=== PATIENT | male | born 1965 | race Two or more races ===

== ENCOUNTER 2023-02-10 21:41 | Inpatient (IN) | payer OTHER ==
[2023-02-10] MEDS ORDERED: morphine SULFATE 4 MG/ML VIAL ONE (22:33)
[2023-02-10] MEDS ORDERED: ONDANSETRON 4 MG/2 ML VIAL IVPUSH ONE (22:39)
[2023-02-10] MEDS ORDERED: ONDANSETRON 4 MG/2 ML VIAL ONE (22:39)
[2023-02-10] MEDS ORDERED: morphine CARPU-JECT 4 MG/1 ML DISP.SYRIN IVPUSH ONE (22:46)
[2023-02-10 22:55] LABS: BASO % 0.3 % (0-2.0); EOS % 0.1 % (0-4.5); HEMATOCRIT 51.7 % (35.4-49); HEMOGLOBIN 17.3 GM/dL (11.7-16.9); LYMPH % 7.5 % (8-40); MCH 25.9 pg (25.7-33.7); MCHC 33.5 g/dl (32.0-35.9); MEAN CELL VOLUME 77.3 fl (80-96); MEAN PLT VOLUME 8.6 fl (7.5-11.1); MONO % 2.8 % (3.8-10.2); NEUT % 89.3 % (42.8-82.8); PLATELET COUNT 303 10^3/uL (134-434); RBC 6.69 M/mm3 (4.00-5.60)
[2023-02-10 23:02] LABS: INR 1.11 (0.83-1.09); PROTHROMBIN TIME (PATIENT) 12.9 SEC (9.7-13.0)
[2023-02-10 23:04] LABS: ACTIVATED PTT 34.5 SECONDS (25.2-36.5)
[2023-02-10] MEDS ORDERED: LACTATED RINGERS SOLUTION 1000 ML INFUS.BAG IV ONE (23:05)
[2023-02-10 23:20] LABS: POTASSIUM 4.4 mmol/L (3.5-5.1)
[2023-02-10 23:23] LABS: ALBUMIN 4.3 g/dl (3.4-5.0); CALCIUM 10.2 mg/dL (8.5-10.1)
[2023-02-10 23:26] LABS: CREATININE 2.2 mg/dL (0.55-1.3)
[2023-02-10 23:27] LABS: BILIRUBIN,TOTAL 0.6 mg/dL (0.2-1)
[2023-02-11] MEDS ORDERED: morphine CARPU-JECT 4 MG/1 ML DISP.SYRIN IVPUSH ONE (00:33)
[2023-02-11 00:34] LABS: PH,URINE 6.5 (5.0-8.0); URINE APPEARANCE CLEAR; URINE BILIRUBIN NEGATIVE (NEGATIVE); URINE COLOR YELLOW; URINE GLUCOSE (UA) NEGATIVE (NEGATIVE); URINE KETONE 1+ (NEGATIVE); URINE LEUK ESTERASE NEGATIVE (NEGATIVE); URINE NITRITE NEGATIVE (NEGATIVE); URINE PROTEIN TRACE (NEGATIVE); URINE UROBILINOGEN 0.2 mg/dL (0.2-1.0)
[2023-02-11] MEDS ORDERED: morphine SULFATE 4 MG/ML VIAL ONE (00:38)
[2023-02-11] MEDS ORDERED: CEFTRIAXONE 1 GM in DEXTROSE 5%-WATER - 100 ML IVPB ONE (01:45)
[2023-02-11] MEDS ORDERED: CEFTRIAXONE 1 GM/50 ML BAG ONE (01:51)
[2023-02-11] MEDS ORDERED: TRIMETHOBENZAMIDE HCL 200MG/2ML INJ IM PRN ×2 (03:06→13:17)
[2023-02-11] MEDS ORDERED: SODIUM CHLORIDE 0.45% 1,000 ML IV SCH ×2 (03:15→13:17)
[2023-02-11] MEDS ORDERED: hydrALAZINE HCL 50 MG TABLET (FP) PO SCH ×2 (04:02→14:00)
[2023-02-11] MEDS ORDERED: CEFTRIAXONE 1 GM in DEXTROSE 5%-WATER - 50 ML IVPB SCH ×2 (04:30→10:00)
[2023-02-11] MEDS ORDERED: ACETAMINOPHEN 1000 MG/100 ML BAG IVPB PRN ×2 (04:45→13:17)
[2023-02-11] MEDS ORDERED: hydrALAZINE HCL 50 MG TABLET (FP) ONE (05:12)
[2023-02-11] MEDS ORDERED: HEPARIN NA (PORCINE) 5,000 UNITS/ML 1ML VIAL SQ SCH (06:00)
[2023-02-11 06:22] LABS: HEMOGLOBIN 16.5 GM/dL (11.7-16.9); MCH 26.1 pg (25.7-33.7); MCHC 32.9 g/dl (32.0-35.9); MEAN CELL VOLUME 79.4 fl (80-96); MEAN PLT VOLUME 9.3 fl (7.5-11.1); PLATELET COUNT 275 10^3/uL (134-434); RBC 6.31 M/mm3 (4.00-5.60); RDW 14.2 % (11.9-15.9)
[2023-02-11] MEDS ORDERED: HEPARIN NA (PORCINE) 5,000 UNITS/ML 1ML VIAL ONE (06:32)
[2023-02-11 06:38] LABS: POTASSIUM 4.8 mmol/L (3.5-5.1)
[2023-02-11 06:41] LABS: CALCIUM 9.1 mg/dL (8.5-10.1)
[2023-02-11 06:42] LABS: ALBUMIN 3.8 g/dl (3.4-5.0); BLOOD UREA NITROGEN 23.5 mg/dL (7-18)
[2023-02-11 06:45] LABS: CREATININE 2.1 mg/dL (0.55-1.3)
[2023-02-11 06:46] LABS: BILIRUBIN,TOTAL 0.6 mg/dL (0.2-1); TOT PROT 7.3 g/dl (6.4-8.2)
[2023-02-11] MEDS ORDERED: TAMSULOSIN HCL 0.4 MG CAP PO SCH (08:30)
[2023-02-11] MEDS ORDERED: LISINOPRIL 10 MG TABLET PO SCH (10:00)
[2023-02-11] MEDS ORDERED: FINASTERIDE 5 MG TABLET (FP) PO SCH (10:00)
[2023-02-11 10:50] VITALS: BMI 30.7
[2023-02-11] MEDS ORDERED: MIDAZOLAM HCL 2 MG/2 ML SINGLE DOSE VIAL ONE (11:47)
[2023-02-11] MEDS ORDERED: PROPOFOL 20 ML ONE (11:48)
[2023-02-11] MEDS ORDERED: ceFAZolin SODIUM 1 GM VIAL IVPB ONE (12:44)
[2023-02-11] MEDS ORDERED: ceFAZolin SODIUM 1 GM VIAL ONE (12:47)
[2023-02-11] MEDS ORDERED: ONDANSETRON 4 MG/2 ML VIAL ONE (12:51)
[2023-02-11] MEDS ORDERED: DEXAMETHASONE SOD PHOSPHATE 4 MG/1 ML VIAL ONE (12:51)
[2023-02-11] MEDS ORDERED: ONDANSETRON 4 MG/2 ML VIAL IVPUSH PRN (13:05)
[2023-02-11] MEDS ORDERED: LACTATED RINGERS SOLUTION 1,000 ML IV SCH (13:15)
[2023-02-11 14:41] VITALS: RESP 18
[2023-02-11] MEDS: HEPARIN NA (PORCINE) 5,000 UNITS/ML 1ML VIAL SQ SCH ×2 (14:49→21:25)
[2023-02-11] MEDS: hydrALAZINE HCL 50 MG TABLET (FP) PO SCH ×2 (17:46→21:25)
[2023-02-12] MEDS: hydrALAZINE HCL 50 MG TABLET (FP) PO SCH (07:02)
[2023-02-12] MEDS: HEPARIN NA (PORCINE) 5,000 UNITS/ML 1ML VIAL SQ SCH ×3 (07:02→21:34)
[2023-02-12] MEDS ORDERED: TAMSULOSIN HCL 0.4 MG CAP PO SCH (08:30)
[2023-02-12] MEDS: FINASTERIDE 5 MG TABLET (FP) PO SCH (09:17)
[2023-02-12] MEDS ORDERED: LISINOPRIL 10 MG TABLET PO SCH (10:00)
[2023-02-12] MEDS ORDERED: CEFTRIAXONE 2 GM in DEXTROSE 5%-WATER 100 ML IVPB SCH (10:00)
[2023-02-12] MEDS ORDERED: CEFTRIAXONE 1 GM in DEXTROSE 5%-WATER - 50 ML IVPB SCH (10:00)
[2023-02-12] MEDS ORDERED: CEFTRIAXONE 1 GM in DEXTROSE 5%-WATER - 50 ML IVPB ONE (11:30)
[2023-02-13] MEDS: HEPARIN NA (PORCINE) 5,000 UNITS/ML 1ML VIAL SQ SCH (05:34)
[2023-02-13 06:53] VITALS: BP 118/79; PULSE 78; TEMP 98.5
[2023-02-13] MEDS ORDERED: TAMSULOSIN HCL 0.4 MG CAP PO SCH (08:30)
[2023-02-13 09:09] LABS: BASO % 0.6 % (0-2.0); EOS % 1.2 % (0-4.5); HEMATOCRIT 46.4 % (35.4-49); HEMOGLOBIN 15.8 GM/dL (11.7-16.9); LYMPH % 29.5 % (8-40); MCH 26.6 pg (25.7-33.7); MCHC 33.9 g/dl (32.0-35.9); MEAN CELL VOLUME 78.4 fl (80-96); MEAN PLT VOLUME 8.7 fl (7.5-11.1); MONO % 6.4 % (3.8-10.2); NEUT % 62.3 % (42.8-82.8); PLATELET COUNT 256 10^3/uL (134-434); RBC 5.92 M/mm3 (4.00-5.60); RDW 14.6 % (11.9-15.9)
[2023-02-13 09:38] LABS: POTASSIUM 4.3 mmol/L (3.5-5.1)
[2023-02-13] MEDS: FINASTERIDE 5 MG TABLET (FP) PO SCH (09:41)
[2023-02-13 09:46] LABS: CREATININE 1.8 mg/dL (0.55-1.3)
[2023-02-13 09:47] LABS: ALBUMIN 3.4 g/dl (3.4-5.0); BILIRUBIN,TOTAL 0.5 mg/dL (0.2-1); BLOOD UREA NITROGEN 25.9 mg/dL (7-18)
[2023-02-13 09:51] LABS: CALCIUM 9.3 mg/dL (8.5-10.1)
[2023-02-13 09:58] LABS: TOT PROT 6.6 g/dl (6.4-8.2)
[2023-02-13] MEDS ORDERED: CEFTRIAXONE 2 GM in DEXTROSE 5%-WATER 100 ML IVPB SCH (10:00)
== END 2023-02-13 13:45 | disposition home or self-care (01) | DRG 463 ==
LOC: JER 21:41 → JERBED 02-11 02:06 → J5S 02-11 08:31
PROVIDERS: ADMIT Internal Medicine
PROC: 0T778DZ Dilation of Left Ureter with Intraluminal Device, Via Natural or Artificial Opening Endoscopic (ICD-10-PCS; principal; 2023-02-13)
PROC: BT1FZZZ Fluoroscopy of Left Kidney, Ureter and Bladder (ICD-10-PCS; 2023-02-13)
DX: N13.6 Pyonephrosis (principal); N17.9 Acute kidney failure, unspecified; E87.20 Acidosis, unspecified; E78.00 Pure hypercholesterolemia, unspecified; N40.0 Benign prostatic hyperplasia without lower urinary tract symptoms; M79.3 Panniculitis, unspecified; D72.829 Elevated white blood cell count, unspecified; E66.9 Obesity, unspecified; Z68.33 Body mass index [BMI] 33.0-33.9, adult; J98.11 Atelectasis; I12.9 Hypertensive chronic kidney disease with stage 1 through stage 4 chronic kidney disease, or unspecified chronic kidney disease; N18.9 Chronic kidney disease, unspecified; K40.20 Bilateral inguinal hernia, without obstruction or gangrene, not specified as recurrent; K42.9 Umbilical hernia without obstruction or gangrene
CPT/HCPCS: 36415; 74176-TC; 76000-TC-FY; 76775-TC; 80053; 81003; 83605; 83690; 84484; 85025; 85027; 85610; 85730; 87040; 87086; 93005; 93010; 94760; 99285-25; C2617; J1644

== ENCOUNTER 2023-10-28 05:16 | Day surgery (SDC) | payer OTHER ==
[2023-10-25 11:33] VITALS: BMI 30.7
[2023-10-28] MEDS ORDERED: ACETAMINOPHEN 1000 MG/100 ML BAG IVPB ONE (12:50)
[2023-10-28] MEDS ORDERED: IBUPROFEN 800 MG/8 ML IJ IVPB SCH (13:00)
[2023-10-28] MEDS ORDERED: DEXTROSE 5%-0.45% SALINE 1,000 ML IV SCH (13:00)
[2023-10-28] MEDS ORDERED: MIDAZOLAM HCL 2 MG/2 ML SINGLE DOSE VIAL ONE (13:14)
[2023-10-28] MEDS ORDERED: FENTANYL CITRATE/PF 50 MCG/ML VIAL ONE ×4 (13:14→15:03)
[2023-10-28] MEDS ORDERED: ONDANSETRON 4 MG/2 ML VIAL ONE (13:14)
[2023-10-28] MEDS ORDERED: DEXAMETHASONE SOD PHOSPHATE 4 MG/1 ML VIAL ONE (13:14)
[2023-10-28] MEDS ORDERED: PROPOFOL 20 ML ONE (13:14)
[2023-10-28] MEDS ORDERED: ONDANSETRON 4 MG/2 ML VIAL IVPUSH PRN (13:31)
[2023-10-28] MEDS: ceFAZolin SODIUM 1 GM VIAL IVPB ONE (13:34)
[2023-10-28] MEDS ORDERED: ACETAMINOPHEN INJECTION 100 ML IVPB ONE (14:13)
[2023-10-28 17:13] VITALS: BP 121/73; PULSE 79; RESP 17; TEMP 97.8
== END 2023-10-28 17:02 | disposition home or self-care (01) ==
LOC: JASU-SURG 05:16
PROVIDERS: ATTEND Urology
PROC: 0T7D8DZ Dilation of Urethra with Intraluminal Device, Via Natural or Artificial Opening Endoscopic (ICD-10-PCS; principal; 2023-10-28 12:30)
DX: N40.1 Benign prostatic hyperplasia with lower urinary tract symptoms (principal); R35.0 Frequency of micturition
CPT/HCPCS: C9740; L8699; 94760; J0131